=== PATIENT | female | born 1995 | race Caucasian/White ===

== ENCOUNTER 2017-12-01 23:49 | Emergency (ER) | payer OTHER ==
[2017-12-02] MEDS: DIPHENHYDRAMINE 25 MG CAP PO (00:55)
[2017-12-02] MEDS: predniSONE 20 MG TAB PO (00:55)
== END 2017-12-02 01:34 | disposition home or self-care (01) ==
LOC: FTE 23:49
DX: R21 Rash and other nonspecific skin eruption (principal)
CPT/HCPCS: 99283